=== PATIENT | male | born 1975 | race Caucasian/White ===

== ENCOUNTER 2019-08-28 10:25 | Emergency (ER) | payer OTHER ==
[~2019-08-28] VITALS: Ht 167.6 cm; Wt 81.6 kg
== END 2019-08-28 18:13 | disposition home or self-care (01) ==
LOC: ER 10:25
DX: L03.116 Cellulitis of left lower limb (principal); M79.672 Pain in left foot

== ENCOUNTER 2020-07-30 14:41 | Emergency (ER) | payer OTHER ==
[~2020-07-30] VITALS: Ht 152.4 cm; Wt 84.4 kg
[2020-07-30] MEDS ORDERED: DULCOLAX STOOL100 M1 PO (18:23)
[2020-07-30] MEDS ORDERED: ANALPRAM HC 2.530 GM RECTAL (18:23)
== END 2020-07-30 18:11 | disposition home or self-care (01) ==
LOC: ER 14:41
DX: K64.8 Other hemorrhoids (principal)